=== PATIENT | male | born 1970 | race Caucasian/White ===

== ENCOUNTER 2022-01-08 12:09 | Emergency (ER) | payer BC ==
--- NOTE | 2022-01-08 12:30 | ERPHSYRPT ---
- History of Present Illness Historian: patient Exam Limitations: no limitations Patient Subjective Stated Complaint: Pt states that he took a sudafed and an advil and approx 30-40 minutes later his eyes swelled and his chest got tight and made it a little hard to breath Triage Nursing Assessment: Pt brought to the ER by his daughter, yuly chau, denies pain, just uncomfortable, was nauseous but is better now, has taken sudafed and advil before but unsure if he has taken together, pulses normal, denies itchy throat, breathing normal, ears were itchy but are fine now, feels like he has a lump in his throat Physician History: 51 yo wm developed chest tightness,nausea, diaphoresis, mild dyspnea wo vomiting while playing tennis in extreme heat w daughter. Pt feeling much better when he got to ER. He has a h/o HTN but denies DM/Hyperlipidemia/tobacco use/CAD-CO. Pt also developed mild ayo-orbital edema. He did take a Sudafed for mild URI symptoms today. Timing/Duration: today Activities at Onset: other (Playing tennis) Quality: tightness Location: substernal Chest Pain Radiation: no radiation Severity of Pain-Max: mild Severity of Pain-Current: mild Modifying Factors: Worsens With: antacids, breathing, coughing, defecating, eating, exertion, lying down, morphine, movement, nitroglycerin, oxygen, palpation, rest, aspirin, sitting up, change in position Associated Symptoms: nausea, shortness of breath, diaphoresis Prior Chest Pain/Cardiac Workup: no prior chest pain Nitro Today/Relief: no nitro taken today Aspirin Treatment Today: no aspirin today Allergies/Adverse Reactions: Penicillins Allergy (Mild, Verified 01/08/22 12:18) Home Medications: Omeprazole Magnesium [Prilosec Otc] 20 mg PO DAILY 07/18/12 [History] Hx Tetanus, Diphtheria Vaccination/Date Given: Yes (2003) Hx Influenza Vaccination/Date Given: Yes Hx Pneumococcal Vaccination/Date Given: No Travel Risk - International Travel Have you traveled outside of the country in past 3 weeks: No - Coronavirus Screening Are you exhibiting any of the following symptoms?: No Close contact with a COVID-19 positive Pt in past 14-21 Days: No - Vaccine Status Have you recieved a Covid-19 vaccination: No - Review of Systems Constitutional: No Symptoms Eyes: No Symptoms Ears, Nose, & Throat: No Symptoms Respiratory: No Symptoms, Cough, Dyspnea Cardiac: No Symptoms, Chest Pain Abdominal/Gastrointestinal: No Symptoms, Nausea Genitourinary Symptoms: No Symptoms Musculoskeletal: No Symptoms Skin: No Symptoms Neurological: No Symptoms Psychological: No Symptoms Endocrine: No Symptoms Hematologic/Lymphatic: No Symptoms Immunological/Allergic: No Symptoms - Past Medical History Pertinent Past Medical History: Yes Neurological History: No Pertinent History ENT History: No Pertinent History Cardiac History: Angina, Hypertension Respiratory History: No Pertinent History Endocrine Medical History: No Pertinent History Musculoskeletal History: No Pertinent History GI Medical History: Ulcer, GERD History: No Pertinent History Psycho-Social History: No Pertinent History Male Reproductive Disorders: No Pertinent History - Past Surgical History Past Surgical History: Yes Neuro Surgical History: No Pertinent History Cardiac: No Pertinent History Respiratory: No Pertinent History Gastrointestinal: Other Genitourinary: No Pertinent History Musculoskeletal: Orthopedic Surgery Male Surgical History: No Pertinent History Other Surgical History: knee. duodenal ulcer repair - Social History Smoking Status: Never smoker Exposure to second hand smoke: No Drug Use: none Patient Lives Alone: No Significant Family History: no pertinent family hx - Nursing Vital Signs Nursing Vital Signs: Initial Vital Signs Temperature 96.3 F 01/08/22 12:10 Pulse Rate 91 H 01/08/22 12:10 Blood Pressure 125/89 01/08/22 12:10 O2 Sat by Pulse Oximetry 94 L 01/08/22 12:10 Pain Scale Pain Intensity 0 WNL - Physical Exam General Appearance: no apparent distress Eye Exam: PERRL/EOMI, eyes nml inspection Ears, Nose, Throat Exam: normal ENT inspection, TMs normal, pharynx normal, moist mucous membranes Neck Exam: normal inspection, non-tender, supple, full range of motion, No meningismus, No mass, No Brudzinski, No Kernig's Respiratory Exam: normal breath sounds, lungs clear, airway intact, No respiratory distress Cardiovascular Exam: regular rate/rhythm, normal heart sounds, normal peripheral pulses, capillary refill <2 sec, No murmur Gastrointestinal/Abdomen Exam: soft, normal bowel sounds, No tenderness Back Exam: normal inspection, normal range of motion, No CVA tenderness, No vertebral tenderness Extremity Exam: normal inspection, normal range of motion Neurologic Exam: alert, oriented x 3, cooperative, washing machine mechanic II-XII nml as tested, normal mood/affect, nml cerebellar function, nml station & gait, sensation nml, No motor deficits, No sensory deficit Skin Exam: normal color, warm, dry Lymphatic Exam: No adenopathy SpO2 Interpretation: normal SpO2: 96 O2 Delivery: Room Air - Course Nursing assessment & vital signs reviewed: Yes EKG Interpreted by Me: RATE (NSR/R89/Normal QT-QTc/Flat T waves) - Radiology Exams Chest X-ray Interpretation: Discussed w/ radiologist (NAD) Ordered Tests: Active Orders 24 hr Category Date Time Status EKG-ER Only STAT Care 01/08/22 12:24 Completed IV Insertion STAT Care 01/08/22 12:24 Completed CHEST 1 VIEW (PORTABLE) Stat Exams 01/08/22 12:50 Completed CBC W DIFF Stat Lab 01/08/22 12:30 Completed CMP Stat Lab 01/08/22 12:30 Completed PROTIME WITH INR Stat Lab 01/08/22 12:30 Completed PTT Stat Lab 01/08/22 12:30 Completed TROPONIN Q3H Lab 01/08/22 12:30 Completed TROPONIN Q3H Lab 01/08/22 14:55 Completed Medication Summary Discontinued Medications Generic Name Dose Route Start Last Admin Trade Name Freq PRN Reason Stop Dose Admin Dexamethasone Sodium Phosphate 10 mg 01/08/22 15:18 01/08/22 15:35 Dexamethasone Sod Phosphate 10 Mg/Ml IV 01/08/22 15:19 10 mg STAT ONE Administration Dexamethasone Sodium Phosphate Confirm 01/08/22 15:35 Dexamethasone Sod Phosphate 10 Mg/Ml Administered 01/08/22 15:36 Dose 10 mg .ROUTE .STK-MED ONE Diphenhydramine HCl 25 mg 01/08/22 15:17 01/08/22 15:35 Diphenhydramine Hcl 25 Mg Capsule PO 01/08/22 15:18 25 mg STAT ONE Administration Diphenhydramine HCl Confirm 01/08/22 15:35 Diphenhydramine Hcl 25 Mg Capsule Administered 01/08/22 15:36 Dose 25 mg .ROUTE .STK-MED ONE Sodium Chloride 1,000 mls @ 999 mls/hr 01/08/22 12:31 01/08/22 14:04 Sodium Chloride 0.9% 1000 Ml IV 01/08/22 13:31 Infused .Q1H1M STA Infusion Sodium Chloride Confirm 01/08/22 12:41 Sodium Chloride 0.9% 1000 Ml Administered 01/08/22 12:42 Dose 1,000 mls @ ud .ROUTE .[facility] Lab/Rad Data: Laboratory Result Diagrams 01/08/22 12:30 01/08/22 12:30 Laboratory Results 01/08/22 01/08/22 01/08/22 Range/Units 14:55 12:30 12:30 WBC (4.0-10.5) x10^3/uL RBC (4.1-5.6) x10^6/uL Hgb (12.5-18.0) g/dL Hct (42-50) % MCV (78-100) fL MCH (26-32) pg MCHC (32-36) g/dL RDW (11.5-14.0) % Plt Count (150-450) x10^3/uL MPV (7.5-11.0) fL Gran % (36.0-66.0) % Immature Gran % (Auto) (0.00-0.4) % Nucleat RBC Rel Count (0.00-0.1) % Eos # (Auto) (0-0.5) x10^3/uL Immature Gran # (Auto) (0.00-0.03) x10^3u/L Absolute Lymphs (auto) (1.0-4.6) x10^3/uL Absolute Monos (auto) (0.0-1.3) x10^3/uL Absolute Nucleated RBC (0.00-0.01) x10^3u/L Lymphocytes % (24.0-44.0) % Monocytes % (0.0-12.0) % Eosinophils % (0.00-5.0) % Basophils % (0.0-0.4) % Absolute Granulocytes (1.4-6.9) x10^3/uL Basophils # (0-0.4) x10^3/uL PT 11.0 (9.4-12.5) SECONDS INR 1.04 (0.8-3.0) APTT 25.8 (25.1-36.5) SECONDS Sodium (137-145) mmol/L Potassium (3.5-5.1) mmol/L Chloride (98-107) mmol/L Carbon Dioxide (22-30) mmol/L Anion Gap (5-15) MEQ/L BUN (9-20) mg/dL Creatinine (0.66-1.25) mg/dL Estimated GFR ML/MIN Glucose (74-106) mg/dL Calcium (8.4-10.2) mg/dL Total Bilirubin (0.2-1.3) mg/dL AST (17-59) U/L ALT (0-50) U/L Alkaline Phosphatase (38-126) U/L Troponin I < 0.012 < 0.012 (0.000-0.034) ng/mL Serum Total Protein (6.3-8.2) g/dL Albumin (3.5-5.0) g/dL 01/08/22 01/08/22 Range/Units 12:30 12:30 WBC 4.6 (4.0-10.5) x10^3/uL RBC 5.25 (4.1-5.6) x10^6/uL Hgb 15.7 (12.5-18.0) g/dL Hct 45.4 (42-50) % MCV 86.5 (78-100) fL MCH 29.9 (26-32) pg MCHC 34.6 (32-36) g/dL RDW 12.3 (11.5-14.0) % Plt Count 178 (150-450) x10^3/uL MPV 10.1 (7.5-11.0) fL Gran % 69.6 H (36.0-66.0) % Immature Gran % (Auto) 0.2 (0.00-0.4) % Nucleat RBC Rel Count 0.0 (0.00-0.1) % Eos # (Auto) 0.09 (0-0.5) x10^3/uL Immature Gran # (Auto) 0.01 (0.00-0.03) x10^3u/L Absolute Lymphs (auto) 0.80 L (1.0-4.6) x10^3/uL Absolute Monos (auto) 0.49 (0.0-1.3) x10^3/uL Absolute Nucleated RBC 0.00 (0.00-0.01) x10^3u/L Lymphocytes % 17.3 L (24.0-44.0) % Monocytes % 10.6 (0.0-12.0) % Eosinophils % 1.9 (0.00-5.0) % Basophils % 0.4 (0.0-0.4) % Absolute Granulocytes 3.21 (1.4-6.9) x10^3/uL Basophils # 0.02 (0-0.4) x10^3/uL PT (9.4-12.5) SECONDS INR (0.8-3.0) APTT (25.1-36.5) SECONDS Sodium 135 L (137-145) mmol/L Potassium 3.5 (3.5-5.1) mmol/L Chloride 103 (98-107) mmol/L Carbon Dioxide 23 (22-30) mmol/L Anion Gap 13.0 (5-15) MEQ/L BUN 15 (9-20) mg/dL Creatinine 1.06 (0.66-1.25) mg/dL Estimated GFR > 60.0 ML/MIN Glucose 107 H (74-106) mg/dL Calcium 8.6 (8.4-10.2) mg/dL Total Bilirubin 0.90 (0.2-1.3) mg/dL AST 39 (17-59) U/L ALT 27 (0-50) U/L Alkaline Phosphatase 76 (38-126) U/L Troponin I (0.000-0.034) ng/mL Serum Total Protein 6.7 (6.3-8.2) g/dL Albumin 3.8 (3.5-5.0) g/dL - Progress Progress: improved Air Movement: good Progress Note: 01/08/22 15:46 Pt improving upon arrival to ER. No dyspnea and minimal chest pain upon arrival. Pt discharged in stable condition 25mg PO Benadryl/10mg IV Decadron for periorbital edema 01/08/22 15:48 Heart Score 3 Counseled pt/family regarding: lab results, diagnosis, need for follow-up, rad results - Departure Departure Disposition: Home Clinical Impression: Chest pain Condition: Stable Critical Care Time: No Referrals: JOSHUA DUBOSE [Primary Care Provider] - Follow up/PCP as directed Instructions: Anaphylaxis (DC), Chest Pain (DC) Additional Instructions: Follow up with family MD in 1-2 days Return to ER for increasing/sustained chest pain or shortness of breath Use EpiPen at first signs of allergic reaction Benadryl every 6 hours as needed Prescriptions: Epinephrine [Auvi-Q] 0.3 mg IJ BID PRN PRN #2 dosepack PRN Reason: Allergies
[2022-01-08] MEDS ORDERED: Sodium Chloride 0.9% 1000 ML 1,000 ML IV STA (12:31)
[2022-01-08] MEDS ORDERED: Sodium Chloride 0.9% 1000 ML 1,000 ML ONE (12:41)
[2022-01-08 12:57] LABS: Absolute Neutrophil Ct (ANC) 3.21 x10^3/uL (1.4-6.9); Basophil (Absolute #) 0.02 x10^3/uL (0-0.4); Eosinophil % 1.9 % (0.00-5.0); Eosinophil (Absolute #) 0.09 x10^3/uL (0-0.5); Hematocrit 45.4 % (42-50); Hemoglobin 15.7 g/dL (12.5-18.0); Lymphocytes % 17.3 % (24.0-44.0); Mean Cell Volume 86.5 fL (78-100); Mean Corpuscular Hemoglobin 29.9 pg (26-32); Mean Corpuscular Hgb Concent. 34.6 g/dL (32-36); Mean Platelet Volume 10.1 fL (7.5-11.0); Monocyte (Absolute #) 0.49 x10^3/uL (0.0-1.3); Monocytes % 10.6 % (0.0-12.0); Neutrophil % 69.6 % (36.0-66.0); Platelet Count 178 x10^3/uL (150-450); Red Blood Count 5.25 x10^6/uL (4.1-5.6); Red Cell Distribution Width 12.3 % (11.5-14.0); White Blood Count 4.6 x10^3/uL (4.0-10.5)
--- NOTE | 2022-01-08 12:59 | XRAY ---
Indication: Chest tightness. Comparison: July 18, 2012. Portable chest again demonstrates normal heart, lungs, and bony thorax.
[2022-01-08 13:03] LABS: ALBUMIN 3.8 g/dL (3.5-5.0); ALKALINE PHOSPHATASE 76 U/L (38-126); BLOOD UREA NITROGEN 15 mg/dL (9-20); CHLORIDE 103 mmol/L (98-107); Calcium 8.6 mg/dL (8.4-10.2); Carbon Dioxide 23 mmol/L (22-30); Creatinine 1 1.06 mg/dL (0.66-1.25); EST GLOMERULAR FILTRATION RATE > 60.0 ML/MIN; Glucose 107 mg/dL (74-106); Potassium 3.5 mmol/L (3.5-5.1); SGOT/AST 39 U/L (17-59); SGPT/ALT 27 U/L (0-50); SODIUM 135 mmol/L (137-145); Total Protein 6.7 g/dL (6.3-8.2)
[2022-01-08 13:20] LABS: INR 1.04 (0.8-3.0); PTT 25.8 SECONDS (25.1-36.5)
[2022-01-08 15:10] VITALS: O2SAT 96
[2022-01-08] MEDS ORDERED: BENADRYL 25 MG CAPSULE PO ONE (15:17)
[2022-01-08] MEDS ORDERED: DECADRON 10MG INJ. IV ONE (15:18)
[2022-01-08] MEDS ORDERED: BENADRYL 25 MG CAPSULE ONE (15:35)
[2022-01-08] MEDS ORDERED: DECADRON 10MG INJ. ONE (15:35)
[2022-01-08 15:53] VITALS: BP 135/92; PULSE 77
== END 2022-01-08 16:00 | disposition home or self-care (01) ==
LOC: ED 12:09
DX: R07.9 Chest pain, unspecified (principal); R11.0 Nausea; R61 Generalized hyperhidrosis; R06.02 Shortness of breath; H05.223 Edema of bilateral orbit; I10 Essential (primary) hypertension; Z72.0 Tobacco use
CPT/HCPCS: 36000; 36415; 71045; 80053; 84484; 85025; 85610; 85730; 93005; 96360; 96374; 99284; J1100; A9270-GY